=== PATIENT | female | born 1975 | race Caucasian/White ===

== ENCOUNTER 2018-12-08 11:26 | Day surgery (SDC) | payer OTHER ==
--- NOTE | 2018-12-08 09:26 | HP ---
SCHEDULED PROCEDURE: Cold knife cone biopsy of the cervix. HISTORY OF PRESENT ILLNESS: Ms. Julien is a 43-year-old multiparous patient, status post BTL, who is seen at the [facility] for high-grade dysplasia on Pap smear. She was found to have DUARTE 2 on both biopsy and endocervical curettage with a large cervix and lesion. Decision was made to proceed with cold knife cone biopsy. EMERGENCY ROOM CLERK HISTORY: x4, status post BTL. PAST MEDICAL HISTORY: Denies. PAST SURGICAL HISTORY: Denies. ALLERGIES: NONE. MEDICATIONS: None. SOCIAL HISTORY: Denies tobacco, alcohol, or IV drug abuse. FAMILY HISTORY: Noncontributory. REVIEW OF SYSTEMS: Noncontributory. PHYSICAL EXAMINATION: VITAL SIGNS: Female, 5 feet 4 inches, 189 pounds, BMI 32, blood pressure 120/78, pulse 80, respirations 18. HEENT: Within normal limits. LUNGS: Clear to auscultation bilaterally. HEART: Regular rate and rhythm. BREASTS: No masses bilaterally. ABDOMEN: Soft and nontender without rebound or guarding. Vulva without lesions. Vagina without discharge. Cervix, parous. Colposcopy reveals large aceto-white area. Pathology revealed high-grade JOHN on biopsies at 1:56 and 9 o'clock, DUARTE 2. IMPRESSION: High-grade dysplasia of the cervix, status post bilateral tubal ligation. PLAN: Proceed with cold knife cone biopsy. The patient understands risks and benefits of procedure including bleeding, infection, recurrence of dysplasia, and need for further surgery. Job ID: [id number]
[2018-12-08] MEDS ORDERED: Ferric Subsulfate (ASTRINGYN) 8 ML VIAL ONE (12:39)
[2018-12-08] MEDS ORDERED: Lidocaine 1% w/Epinephrine 1:100K 20 ML VIAL ONE (12:39)
[2018-12-08] MEDS ORDERED: Fentanyl 100 MCG/2 ML VIAL ONE (12:52)
[2018-12-08] MEDS ORDERED: HYDROcodone/Acetaminophen 5/325 mg Tablet ONE (15:53)
[2018-12-08] MEDS ORDERED: Ondansetron PF 4 MG/2 ML Vial ONE (16:59)
[2018-12-08] MEDS ORDERED: PROPOFOL 200 MG/20 ML VIAL ONE (16:59)
[2018-12-08] MEDS ORDERED: Dexamethasone 20 MG/5 ML VIAL ONE (16:59)
[2018-12-08] MEDS ORDERED: ePHEDrine 50 MG/ML VIAL ONE (16:59)
[2018-12-08] MEDS ORDERED: Ketorolac Tromethamine 30 MG/ML VIAL ONE (16:59)
[2018-12-08] MEDS ORDERED: Lidocaine 1% PF 5 ML VIAL ONE (16:59)
--- NOTE | 2018-12-08 19:44 | OP ---
DATE OF PROCEDURE: 12/08/2018 PREOPERATIVE DIAGNOSIS: DUARTE 2 of the cervix, large cervix and fairly large area that was aceto-white on colposcopy. POSTOPERATIVE DIAGNOSIS: DUARTE 2 of the cervix, large cervix and fairly large area that was aceto-white on colposcopy. PROCEDURE PERFORMED: Cold knife cone biopsy of cervix. SHRINK PIT SUPERVISOR: Janae Ferrari PA-C ANESTHESIA: General endotracheal. ESTIMATED BLOOD LOSS: Less than 50 mL. COMPLICATIONS: None. MEDICATIONS: 2 g Ancef preincision. DVT PROPHYLAXIS: SCDs. OPERATIVE FINDINGS: 1. Large multiparas cervix with aceto-white area completely excised. 2. Hemostasis. COUNTS: Correct at the end of procedure. DISPOSITION: Recovery room in good condition. SPECIMEN: Cervix, cold knife cone. Specimen tagged at 12 o'clock with Vicryl suture. DESCRIPTION OF PROCEDURE: After obtaining appropriate informed consent, the patient was taken to the operating room, general endotracheal anesthesia was achieved without difficulty. The patient was prepped and draped in dorsal lithotomy position in Magdi stirrups. Bladder was drained of clear urine. A weighted speculum was placed in the vagina. Cervix identified, grasped with single-tooth tenaculum at 12 o'clock, was injected circumferentially with lidocaine with epinephrine mixture 20 mL total. Stay sutures of 0 Vicryl placed at 3 and 9 o'clock. The plan was to apply Lugol solution to the cervix; however, Lugol was apparently in short supply from the hospital distribution network and was not available. In replacement, vinegar was applied. Aceto-white area was noted. Using the [place] blade, starting at 6 o'clock and going from 6 to 3, 6 to 9, 9 to 12 and 3 to 12, cold knife cone excision in the usual manner was carried out of the cervix extending approximately 2-3 cm up the endocervical canal. The specimen was removed and was tagged at 12 o'clock. Bovie cautery was used to achieve hemostasis on most significant areas of bleeding in the surgical excision bed. The excision bed was run using a 0 chromic in a running locking manner from [address]ina all the way back around to 6 o'clock. Good hemostasis was noted after this was done. Surgicel was applied across the surgical bed as well and the stay sutures at 9 and 3, were tied across the middle to hold the Surgicel in place. Good hemostasis was noted. Speculums were removed. Counts were correct and the patient was awakened, extubated, taken to recovery room in good condition. Job ID: [id number]
== END 2018-12-08 16:42 ==
LOC: SDC 11:26
PROVIDERS: ATTEND Obstetrics & Gynecology
PROC: 0UBC7ZX Excision of Cervix, Via Natural or Artificial Opening, Diagnostic (ICD-10-PCS; principal; 2018-12-08)
DX: N87.1 Moderate cervical dysplasia (principal); Z98.51 Tubal ligation status
CPT/HCPCS: 36415; 86850; 86900; 86901; 88307; J0690; J1100; J1885; J2001; J2405; J2704; J3010; J3490